=== PATIENT | male | born 1940 | race Caucasian/White ===

== ENCOUNTER 2016-07-08 08:25 | Inpatient (IN) | payer OTHER ==
[~2016-07-08] VITALS: Ht 177.8 cm; Wt 76.6 kg
[~2016-07-08 08:25] MED LIST: ADVAIR 250/501 DISK IH; ADVIL200 MG PO; ALBUTEROL; ALOE VERA1 EACH PO; ASPIR-LOW81 MG PO; ATORVASTATIN CA80 MG PO; CARDIZEM30 MG PO; CLOPIDOGREL75 MG PO; DUONEB 2.5-0.5 M3 ML AEROSOL; FLOMAX0.4 MG; FLOMAX0.4 MG PO; LEVAQUIN750 MG PO; MULTIVITAMIN1 EAC2 PO; PREDNISONE10 MG PO; PREDNISONE20 MG PO; PROAIR HFA8.5 GM IH; SAW PALMETTO80 MG PO; SPIRIVA1 INHALATI; SPIRIVA1 INHALATI IH; TYLENOL EXTRA500 MG PO; ZITHROMAX500 MG PO
[2016-07-08 08:53] LABS: BASE EXCESS -0.8 mEq/L (-3 to +3); BICARBONATE 24.9 mEq/L (22-26); CARBOXY HGB 3.9 % (0-5); COMMENTS - BLOOD GASES C+A+; DEVICE NEBULIZER; METHEMOGLOBIN 0.9 % (0-1.5); O2 FLOW 8 L/MIN; PCO2 44 mm Hg (35-45); PO2 72 mm Hg (80-100); SITE LR; TOTAL RESP RATE 28 resp/min; pH 7.36 (7.35-7.45)
[2016-07-08 09:30] LABS: MEAN PLAT.VOLUME 10.3 uM^3 (9.0-12.4); PLATELET COUNT 261 K/uL (156-360)
[2016-07-08 09:39] LABS: MCH 30.3 PG (29.0-34.0); MCHC 32.8 G/DL (30.0-36.0); MCV 92.4 FL (86-99); RBC DIS.WIDTH-CV 13.5 % (11.8-14.6); RBC DIS.WIDTH-SD 45.7 % (39-53); RED BLOOD COUNT 4.98 M/uL (4.00-5.50)
[2016-07-08 09:40] LABS: INTER. NORMALIZED RATIO 1.3; PROTHROMBIN TIME 13.2 (9.2-11.2); PTT 31.5 (25-32)
[2016-07-08 09:48] LABS: WHITE BLOOD COUNT 30.8 K/uL (4.1-10.2)
[2016-07-08 09:50] LABS: TROP-I INTERPRETATION NEGATIVE; TROPONIN-I 0.02 ng/mL (0.0-0.30)
[2016-07-08 11:15] LABS: CHLORIDE 99 mEq/L (99-109); POTASSIUM 4.6 mEq/L (3.7-5.4); SODIUM 134 mEq/L (136-147)
[2016-07-08 11:16] LABS: GLUCOSE 111 mg/dL (70-99)
[2016-07-08 11:18] LABS: ANION GAP 13 MEQ/L (2-14)
[2016-07-08 11:19] LABS: BASOPHIL COUNT 0.1 K/uL (0-0.1); EOSINOPHIL (%) 0 % (0-5); IMMATURE GRANULOCYTE (%) 1.4 % (0.0-0.7); IMMATURE GRANULOCYTE COUNT 0.4 K/uL; INSTRUMENT ABS NEUTROPHIL CT 27.8 K/uL; LYMPHOCYTE COUNT 0.6 K/uL (1.0-2.8); MONOCYTE (%) 6.2 % (3-12); MONOCYTE COUNT 1.9 K/uL (0-0.8); NEUTROPHIL (%) 90.2 % (45-76); NEUTROPHIL COUNT 27.8 K/uL (1.8-6.4)
[2016-07-08 11:20] LABS: GFR ESTIMATE (CALCULATED) > 59 mL/min/
[2016-07-08 11:21] LABS: UREA NITROGEN (BUN) 12 mg/dL (9-23)
[2016-07-08 13:16] VITALS: BP 115/59
[2016-07-08] MEDS ORDERED: PREDNISONE10 MG PO (13:40)
[2016-07-08] MEDS ORDERED: ZITHROMAX500 MG PO (13:42)
[2016-07-08] MEDS ORDERED: XANAX0.25 MG PO (13:42)
[2016-07-08 14:25] VITALS: BP 11/57
[2016-07-08 14:31] LABS: CARBOXY HGB 1.5 % (0-5); METHEMOGLOBIN 2.6 % (0-1.5); PCO2 43 mm Hg (35-45)
[2016-07-08 14:32] LABS: BICARBONATE 19.7 mEq/L (22-26); COMMENTS - BLOOD GASES NEG A+C+; DEVICE NRBR; FI02 100 %; O2 FLOW 15 L/MIN; PO2 322 mm Hg (80-100); SITE LR; TOTAL RESP RATE 29 resp/min; pH 7.27 (7.35-7.45)
[2016-07-08 15:13] LABS: TROP-I INTERPRETATION NEGATIVE; TROPONIN-I 0.01 ng/mL (0.0-0.30)
[2016-07-08 15:36] VITALS: BP 123/65
[2016-07-08 21:30] VITALS: BP 98/54
[2016-07-08 22:03] LABS: TROP-I INTERPRETATION NEGATIVE; TROPONIN-I < 0.01 ng/mL (0.0-0.30)
[2016-07-08 23:41] VITALS: BP 95/50
[2016-07-09 05:05] VITALS: BP 93/57
[2016-07-09 07:18] VITALS: BP 133/50
[2016-07-09 07:57] LABS: HEMATOCRIT 37.4 % (38.0-50.0); MCHC 32.1 G/DL (30.0-36.0); MCV 93.5 FL (86-99); MEAN PLAT.VOLUME 10.9 uM^3 (9.0-12.4); PLATELET COUNT 215 K/uL (156-360); RBC DIS.WIDTH-CV 13.4 % (11.8-14.6); RBC DIS.WIDTH-SD 46.5 % (39-53); WHITE BLOOD COUNT 27.2 K/uL (4.1-10.2)
[2016-07-09 08:11] LABS: ANION GAP 8 MEQ/L (2-14); CHLORIDE 105 MEQ/L (99-109); GFR ESTIMATE (CALCULATED) > 59 mL/min/; GLUCOSE 137 mg/dL (70-99); SAMPLE HEMOLYSIS CHECK 0; SAMPLE ICTERIC CHECK 0; SAMPLE LIPEMIA CHECK 0; SODIUM 139 MEQ/L (136-147); UREA NITROGEN (BUN) 11 mg/dL (9-23)
[2016-07-09 08:15] LABS: POTASSIUM 3.4 MEQ/L (3.7-5.4)
[2016-07-09 11:51] VITALS: BP 100/54
[2016-07-09 13:00] VITALS: BP 111/64
[2016-07-09 14:43] LABS: TROP-I INTERPRETATION NEGATIVE; TROPONIN-I 0.01 ng/mL (0.0-0.30)
[2016-07-09 17:17] VITALS: BP 100/50
[2016-07-09 19:12] VITALS: BP 103/56
[2016-07-10 00:14] VITALS: BP 94/53
[2016-07-10 07:57] VITALS: BP 104/55
[2016-07-10 09:12] LABS: EOSINOPHIL (%) 0 % (0-5); HEMATOCRIT 35.5 % (38.0-50.0); IMMATURE GRANULOCYTE (%) 0.6 % (0.0-0.7); IMMATURE GRANULOCYTE COUNT 0.1 K/uL; INSTRUMENT ABS NEUTROPHIL CT 21.4 K/uL; LYMPHOCYTE COUNT 0.4 K/uL (1.0-2.8); MCH 30.3 PG (29.0-34.0); MCHC 32.7 G/DL (30.0-36.0); MCV 92.7 FL (86-99); MEAN PLAT.VOLUME 11.2 uM^3 (9.0-12.4); MONOCYTE (%) 4.5 % (3-12); NEUTROPHIL (%) 93.1 % (45-76); NEUTROPHIL COUNT 21.4 K/uL (1.8-6.4); PLATELET COUNT 219 K/uL (156-360); RBC DIS.WIDTH-CV 13.9 % (11.8-14.6); RBC DIS.WIDTH-SD 47.3 % (39-53); RED BLOOD COUNT 3.83 M/uL (4.00-5.50)
[2016-07-10 09:33] LABS: ANION GAP 8 MEQ/L (2-14); CHLORIDE 106 MEQ/L (99-109); GFR ESTIMATE (CALCULATED) > 59 mL/min/; GLUCOSE 138 mg/dL (70-99); POTASSIUM 3.9 MEQ/L (3.7-5.4); SAMPLE HEMOLYSIS CHECK 0; SAMPLE ICTERIC CHECK 0; SAMPLE LIPEMIA CHECK 0; SODIUM 139 MEQ/L (136-147); UREA NITROGEN (BUN) 20 mg/dL (9-23)
[2016-07-10 11:45] VITALS: BP 109/58
[2016-07-10 16:33] VITALS: BP 117/76
[2016-07-10 19:27] VITALS: BP 114/76
[2016-07-10 20:45] LABS: HEMATOCRIT 36.3 % (38.0-50.0); MCV 93.1 FL (86-99)
[2016-07-11] VITALS (7 sets, daily range): BP systolic 90–150; BP diastolic 55–80
[2016-07-11 06:32] LABS: EOSINOPHIL (%) 0 % (0-5); HEMATOCRIT 36.6 % (38.0-50.0); IMMATURE GRANULOCYTE (%) 0.8 % (0.0-0.7); IMMATURE GRANULOCYTE COUNT 0.1 K/uL; INSTRUMENT ABS NEUTROPHIL CT 16.7 K/uL; LYMPHOCYTE COUNT 0.4 K/uL (1.0-2.8); MCH 29.6 PG (29.0-34.0); MCHC 31.7 G/DL (30.0-36.0); MCV 93.4 FL (86-99); MEAN PLAT.VOLUME 11.1 uM^3 (9.0-12.4); MONOCYTE (%) 5.3 % (3-12); NEUTROPHIL (%) 91.7 % (45-76); NEUTROPHIL COUNT 16.7 K/uL (1.8-6.4); NRBC (%) 0.1 /100 WBC (0-0); PLATELET COUNT 249 K/uL (156-360); RBC DIS.WIDTH-CV 14.2 % (11.8-14.6); RBC DIS.WIDTH-SD 48.8 % (39-53); RED BLOOD COUNT 3.92 M/uL (4.00-5.50); WHITE BLOOD COUNT 18.2 K/uL (4.1-10.2)
[2016-07-11 06:55] LABS: ANION GAP 9 MEQ/L (2-14); CHLORIDE 108 MEQ/L (99-109); GFR ESTIMATE (CALCULATED) > 59 mL/min/; GLUCOSE 149 mg/dL (70-99); POTASSIUM 4.3 MEQ/L (3.7-5.4); SAMPLE HEMOLYSIS CHECK 0; SAMPLE ICTERIC CHECK 0; SAMPLE LIPEMIA CHECK 0; SODIUM 143 MEQ/L (136-147); UREA NITROGEN (BUN) 20 mg/dL (9-23)
[2016-07-11] MEDS ORDERED: LO-DOSE ASPIRIN81 M2 PO (19:21)
[2016-07-12 04:04] VITALS: BP 135/65
[2016-07-12 06:13] LABS: EOSINOPHIL (%) 0 % (0-5); HEMATOCRIT 37.6 % (38.0-50.0); IMMATURE GRANULOCYTE COUNT 0.2 K/uL; INSTRUMENT ABS NEUTROPHIL CT 15.8 K/uL; LYMPHOCYTE COUNT 0.6 K/uL (1.0-2.8); MCH 29.7 PG (29.0-34.0); MCHC 31.6 G/DL (30.0-36.0); MCV 93.8 FL (86-99); MEAN PLAT.VOLUME 10.9 uM^3 (9.0-12.4); MONOCYTE (%) 3.9 % (3-12); MONOCYTE COUNT 0.7 K/uL (0-0.8); NEUTROPHIL (%) 91.7 % (45-76); NEUTROPHIL COUNT 15.8 K/uL (1.8-6.4); PLATELET COUNT 251 K/uL (156-360); RBC DIS.WIDTH-CV 14.5 % (11.8-14.6); RBC DIS.WIDTH-SD 49.4 % (39-53); RED BLOOD COUNT 4.01 M/uL (4.00-5.50); WHITE BLOOD COUNT 17.2 K/uL (4.1-10.2)
[2016-07-12 06:43] LABS: ANION GAP 6 MEQ/L (2-14); CHLORIDE 107 MEQ/L (99-109); GFR ESTIMATE (CALCULATED) > 59 mL/min/; GLUCOSE 145 mg/dL (70-99); POTASSIUM 4.3 MEQ/L (3.7-5.4); SAMPLE HEMOLYSIS CHECK 0; SAMPLE ICTERIC CHECK 0; SAMPLE LIPEMIA CHECK 0; SODIUM 143 MEQ/L (136-147); UREA NITROGEN (BUN) 16 mg/dL (9-23)
[2016-07-12 07:30] VITALS: BP 132/70
[2016-07-12 12:00] VITALS: BP 117/67
[2016-07-12 16:00] VITALS: BP 154/81
[2016-07-12 19:10] VITALS: BP 121/71
[2016-07-12 23:30] VITALS: BP 131/68
[2016-07-13 04:00] VITALS: BP 133/68
[2016-07-13 07:30] LABS: EOSINOPHIL (%) 0 % (0-5); HEMATOCRIT 38.4 % (38.0-50.0); IMMATURE GRANULOCYTE (%) 1.4 % (0.0-0.7); IMMATURE GRANULOCYTE COUNT 0.3 K/uL; INSTRUMENT ABS NEUTROPHIL CT 19.5 K/uL; LYMPHOCYTE COUNT 0.6 K/uL (1.0-2.8); MCH 30.4 PG (29.0-34.0); MCHC 32.6 G/DL (30.0-36.0); MCV 93.4 FL (86-99); MEAN PLAT.VOLUME 11.1 uM^3 (9.0-12.4); MONOCYTE (%) 2.7 % (3-12); MONOCYTE COUNT 0.6 K/uL (0-0.8); NEUTROPHIL COUNT 19.5 K/uL (1.8-6.4); PLATELET COUNT 283 K/uL (156-360); RBC DIS.WIDTH-CV 14.4 % (11.8-14.6); RBC DIS.WIDTH-SD 49.4 % (39-53); RED BLOOD COUNT 4.11 M/uL (4.00-5.50); WHITE BLOOD COUNT 20.9 K/uL (4.1-10.2)
[2016-07-13 07:39] VITALS: BP 137/108
[2016-07-13 07:58] LABS: ALKALINE PHOSPHATASE 99 IU/L (3-129); ANION GAP 8 MEQ/L (2-14); CHLORIDE 103 MEQ/L (99-109); GFR ESTIMATE (CALCULATED) > 59 mL/min/; GLUCOSE 121 mg/dL (70-99); POTASSIUM 4.3 MEQ/L (3.7-5.4); SAMPLE HEMOLYSIS CHECK 0; SAMPLE ICTERIC CHECK 0; SAMPLE LIPEMIA CHECK 0; SODIUM 141 MEQ/L (136-147); TOTAL BILIRUBIN 0.3 MG/DL (0.0-1.0); UREA NITROGEN (BUN) 17 mg/dL (9-23)
[2016-07-13 12:14] VITALS: BP 116/72
[2016-07-13 12:43] LABS: C DIFF TOXIN NEGATIVE (NEGATIVE)
[2016-07-13 12:46] LABS: PROBE CHECK PASS; SPECIMEN PROCESSING CONTROL PASS
[2016-07-13 15:25] VITALS: BP 132/75
[2016-07-13 20:45] VITALS: BP 133/74
[2016-07-14] VITALS (7 sets, daily range): BP systolic 115–170; BP diastolic 72–90
[2016-07-14 07:11] LABS: EOSINOPHIL (%) 0 % (0-5); HEMATOCRIT 38.6 % (38.0-50.0); IMMATURE GRANULOCYTE (%) 1.7 % (0.0-0.7); IMMATURE GRANULOCYTE COUNT 0.3 K/uL; INSTRUMENT ABS NEUTROPHIL CT 15.2 K/uL; LYMPHOCYTE COUNT 0.6 K/uL (1.0-2.8); MCH 30.7 PG (29.0-34.0); MCHC 33.2 G/DL (30.0-36.0); MCV 92.6 FL (86-99); MEAN PLAT.VOLUME 10.6 uM^3 (9.0-12.4); MONOCYTE (%) 3.8 % (3-12); MONOCYTE COUNT 0.6 K/uL (0-0.8); NEUTROPHIL (%) 90.8 % (45-76); NEUTROPHIL COUNT 15.2 K/uL (1.8-6.4); NRBC (%) 0.2 /100 WBC (0-0); PLATELET COUNT 294 K/uL (156-360); RBC DIS.WIDTH-SD 47.5 % (39-53); RED BLOOD COUNT 4.17 M/uL (4.00-5.50); WHITE BLOOD COUNT 16.8 K/uL (4.1-10.2)
[2016-07-14 07:36] LABS: ALKALINE PHOSPHATASE 96 IU/L (3-129); ANION GAP 5 MEQ/L (2-14); CHLORIDE 98 MEQ/L (99-109); GFR ESTIMATE (CALCULATED) > 59 mL/min/; GLUCOSE 110 mg/dL (70-99); SAMPLE HEMOLYSIS CHECK 0; SAMPLE ICTERIC CHECK 0; SAMPLE LIPEMIA CHECK 0; SODIUM 140 MEQ/L (136-147); UREA NITROGEN (BUN) 14 mg/dL (9-23)
[2016-07-14 07:37] LABS: TOTAL BILIRUBIN 0.5 MG/DL (0.0-1.0)
[2016-07-15 07:30] VITALS: BP 134/90
[2016-07-15 12:05] VITALS: BP 116/62
[2016-07-15 15:27] VITALS: BP 127/87
[2016-07-15 20:36] VITALS: BP 144/90
[2016-07-15 23:30] VITALS: BP 122/82
[2016-07-16 04:31] VITALS: BP 132/63
[2016-07-16 06:03] LABS: EOSINOPHIL (%) 0 % (0-5); HEMATOCRIT 39.7 % (38.0-50.0); IMMATURE GRANULOCYTE (%) 1.6 % (0.0-0.7); IMMATURE GRANULOCYTE COUNT 0.3 K/uL; INSTRUMENT ABS NEUTROPHIL CT 14.6 K/uL; LYMPHOCYTE COUNT 0.5 K/uL (1.0-2.8); MCH 29.8 PG (29.0-34.0); MCHC 32.7 G/DL (30.0-36.0); MCV 91.1 FL (86-99); MONOCYTE (%) 3.2 % (3-12); MONOCYTE COUNT 0.5 K/uL (0-0.8); NEUTROPHIL (%) 92.2 % (45-76); NEUTROPHIL COUNT 14.6 K/uL (1.8-6.4); PLATELET COUNT 306 K/uL (156-360); RBC DIS.WIDTH-CV 13.3 % (11.8-14.6); RBC DIS.WIDTH-SD 44.4 % (39-53); RED BLOOD COUNT 4.36 M/uL (4.00-5.50); WHITE BLOOD COUNT 15.8 K/uL (4.1-10.2)
[2016-07-16 06:25] LABS: CHLORIDE 96 mEq/L (99-109); POTASSIUM 3.3 mEq/L (3.7-5.4); SODIUM 139 mEq/L (136-147)
[2016-07-16 06:27] LABS: GLUCOSE 132 mg/dL (70-99)
[2016-07-16 06:28] LABS: ANION GAP 9 MEQ/L (2-14)
[2016-07-16 06:29] LABS: TOTAL BILIRUBIN 0.6 mg/dL (0.0-1.0)
[2016-07-16 06:30] LABS: ALKALINE PHOSPHATASE 89 IU/L (3-129)
[2016-07-16 06:31] LABS: GFR ESTIMATE (CALCULATED) > 59 mL/min/
[2016-07-16 06:32] LABS: UREA NITROGEN (BUN) 11 mg/dL (9-23)
[2016-07-16 07:40] VITALS: BP 131/81
[2016-07-16 11:35] VITALS: BP 150/68
[2016-07-16 15:55] VITALS: BP 125/74
[2016-07-16 19:21] VITALS: BP 134/76
[2016-07-17 00:08] VITALS: BP 116/84
[2016-07-17 04:06] VITALS: BP 116/75
[2016-07-17 09:00] VITALS: BP 129/71
[2016-07-17 12:30] VITALS: BP 121/68
[2016-07-17 17:31] VITALS: BP 128/90
[2016-07-17 20:07] LABS: ANION GAP 13 MEQ/L (2-14); CHLORIDE 94 MEQ/L (99-109); GFR ESTIMATE (CALCULATED) > 59 mL/min/; GLUCOSE 117 mg/dL (70-99); POTASSIUM 3.7 MEQ/L (3.7-5.4); SAMPLE HEMOLYSIS CHECK 0; SAMPLE ICTERIC CHECK 0; SAMPLE LIPEMIA CHECK 0; SODIUM 138 MEQ/L (136-147); UREA NITROGEN (BUN) 19 mg/dL (9-23)
[2016-07-17 20:30] VITALS: BP 115/66
[2016-07-18 00:10] VITALS: BP 157/77
[2016-07-18 05:49] VITALS: BP 119/75
[2016-07-18 06:37] LABS: ANION GAP 6 MEQ/L (2-14); CHLORIDE 95 MEQ/L (99-109); GFR ESTIMATE (CALCULATED) > 59 mL/min/; GLUCOSE 118 mg/dL (70-99); POTASSIUM 3.6 MEQ/L (3.7-5.4); SAMPLE HEMOLYSIS CHECK 0; SAMPLE ICTERIC CHECK 0; SAMPLE LIPEMIA CHECK 0; SODIUM 138 MEQ/L (136-147); UREA NITROGEN (BUN) 14 mg/dL (9-23)
[2016-07-18 06:54] LABS: EOSINOPHIL (%) 0 % (0-5); HEMATOCRIT 41.1 % (38.0-50.0); IMMATURE GRANULOCYTE (%) 1.2 % (0.0-0.7); IMMATURE GRANULOCYTE COUNT 0.3 K/uL; INSTRUMENT ABS NEUTROPHIL CT 20.4 K/uL; LYMPHOCYTE COUNT 0.5 K/uL (1.0-2.8); MCH 30.2 PG (29.0-34.0); MCHC 33.8 G/DL (30.0-36.0); MCV 89.3 FL (86-99); MEAN PLAT.VOLUME 10.2 uM^3 (9.0-12.4); MONOCYTE (%) 2.4 % (3-12); MONOCYTE COUNT 0.5 K/uL (0-0.8); NEUTROPHIL COUNT 20.4 K/uL (1.8-6.4); PLATELET COUNT 295 K/uL (156-360); RBC DIS.WIDTH-CV 13.4 % (11.8-14.6); RBC DIS.WIDTH-SD 43.5 % (39-53)
[2016-07-18 06:58] LABS: WHITE BLOOD COUNT 21.6 K/uL (4.1-10.2)
[2016-07-18 11:32] VITALS: BP 108/58
[2016-07-18 16:49] VITALS: BP 104/62
[2016-07-18 20:16] VITALS: BP 97/57
[2016-07-18 23:51] VITALS: BP 119/68
[2016-07-19 04:25] VITALS: BP 101/59
[2016-07-19 07:53] VITALS: BP 122/66
[2016-07-19 12:02] VITALS: BP 117/62
[2016-07-19 16:27] VITALS: BP 100/56
[2016-07-19 19:53] VITALS: BP 124/55
[2016-07-20 00:14] VITALS: BP 109/65
[2016-07-20 05:12] VITALS: BP 111/59
[2016-07-20 07:10] LABS: EOSINOPHIL (%) 0 % (0-5); HEMATOCRIT 42.1 % (38.0-50.0); IMMATURE GRANULOCYTE (%) 1.1 % (0.0-0.7); IMMATURE GRANULOCYTE COUNT 0.3 K/uL; INSTRUMENT ABS NEUTROPHIL CT 22.4 K/uL; LYMPHOCYTE COUNT 1.1 K/uL (1.0-2.8); MCH 30.8 PG (29.0-34.0); MCV 90.5 FL (86-99); MEAN PLAT.VOLUME 10.2 uM^3 (9.0-12.4); MONOCYTE COUNT 1.8 K/uL (0-0.8); NEUTROPHIL (%) 87.6 % (45-76); NEUTROPHIL COUNT 22.4 K/uL (1.8-6.4); NRBC (%) 0.1 /100 WBC (0-0); PLATELET COUNT 268 K/uL (156-360); RBC DIS.WIDTH-CV 13.3 % (11.8-14.6); RBC DIS.WIDTH-SD 43.5 % (39-53); RED BLOOD COUNT 4.65 M/uL (4.00-5.50); WHITE BLOOD COUNT 25.6 K/uL (4.1-10.2)
[2016-07-20 08:07] VITALS: BP 131/71
[2016-07-20 12:04] VITALS: BP 104/58
[2016-07-20] MEDS ORDERED: PREDNISONE20 MG PO (14:31)
[2016-07-20] MEDS ORDERED: LEVALBUTER1.25 MG/3 IH ×2 (14:31→14:32)
[2016-07-20] MEDS ORDERED: ATROVENT 00.5 MG/2.5 AEROSOL (14:32)
[2016-07-20 15:54] VITALS: BP 106/58
== END 2016-07-20 16:00 | disposition home health service (06) | DRG 190 ==
LOC: EME → EDBD 08:25 → EDOF 11:22 → 2EAST 11:22 → 4EAST 11:22 → EDOF 11:22 → 2EAST 12:59 → 4EAST 14:57
PROVIDERS: Emergency Medicine; Hospitalist; Internal Medicine
PROC: 5A09358 Assistance with Respiratory Ventilation, Less than 24 Consecutive Hours, Intermittent Positive Airway Pressure (ICD-10-PCS; principal; 2016-07-08)
DX: J44.1 Chronic obstructive pulmonary disease with (acute) exacerbation (principal); J96.22 Acute and chronic respiratory failure with hypercapnia; J96.21 Acute and chronic respiratory failure with hypoxia; J44.0 Chronic obstructive pulmonary disease with (acute) lower respiratory infection; J18.9 Pneumonia, unspecified organism; I10 Essential (primary) hypertension; E78.5 Hyperlipidemia, unspecified; I25.10 Atherosclerotic heart disease of native coronary artery without angina pectoris; E44.0 Moderate protein-calorie malnutrition; R63.6 Underweight; Z68.1 Body mass index [BMI] 19.9 or less, adult; Z66 Do not resuscitate; Z99.81 Dependence on supplemental oxygen; Z85.46 Personal history of malignant neoplasm of prostate; Z87.891 Personal history of nicotine dependence
CPT/HCPCS: 36600; 71010; 71020; 71275; 80048; 80053; 82803; 83605; 83880; 84484; 85014; 85018; 85025; 85027; 85379; 85610; 85730; 87040; 87070; 87077; 87186; 87205; 87449; 87493; 93005; 94002; 94640; 94640 76; 94644; 94660; 94667; 94760; 94799; 99202; 99281; 99285; C9113; J0456; J0692; J0696; J1650; J1956; J2270; J2543; J2920; J2930; J3370; J3475; J7030; J7040; J7050; J7512